=== PATIENT | female | born 1975 | race African-American/Black ===

== ENCOUNTER 2016-08-31 05:03 | Emergency (ER) | payer OTHER ==
[~2016-08-31] VITALS: Ht 175.3 cm; Wt 85.5 kg
[~2016-08-31 05:03] MED LIST: ALBU18HF2 IH; CARI350T PO; ONDA4TAB5 PO; OXYC-100 PO; PROT20 PO
[2016-08-31] MEDS ORDERED: SODIUM CHLORIDE 0.9% 1,000 ML IV ONE (06:16)
[2016-08-31] MEDS ORDERED: ONDANSETRON HCL 4MG/2ML VIAL IV STA (06:16)
[2016-08-31] MEDS ORDERED: DIPHENHYDRAMINE 50MG/ML VIAL IV ONE (06:30)
[2016-08-31] MEDS ORDERED: MORPHINE SULFATE 4 MG/ML CPJ (NOT FOR IM USE) IV ONE ×2 (06:30→07:45)
[2016-08-31 06:40] LABS: CLARITY URINE CLOUDY (CLEAR); COLOR URINE YELLOW (YELLOW); GLUCOSE URINE NEGATIVE (NEGATIVE); KETONES URINE 2+ (NEGATIVE); LEUKOCYTE ESTERASE URINE TRACE (NEGATIVE); NITRITE URINE NEGATIVE (NEGATIVE); OCCULT BLOOD URINE NEGATIVE (NEGATIVE); PH URINE >=9.0 (4.5-8.0); PROTEIN URINE TRACE (NEGATIVE); SPECIFIC GRAVITY URINE 1.021 (1.005-1.030)
[2016-08-31 06:42] LABS: HEMATOCRIT. 29.1 % (36.0-48.0); HEMOGLOBIN. 9.1 g/dL (12.0-16.0); MEAN CORPUSCULAR HEMOGLOBIN 23.9 pg (28.0-32.0); MEAN CORPUSCULAR HGB CONC 31.1 g/dL (31.0-37.0); MEAN PLATELET VOLUME 7.9 fl (7.4-10.4); PLATELET 262 x1000/uL (130-400); RED BLOOD CELL COUNT 3.79 mill/uL (4.2-5.4); RED CELL DISTRIBUTION WIDTH 18.1 % (11.6-14.6); WHITE BLOOD COUNT 2.5 x1000/uL (4.5-11.0)
[2016-08-31 06:43] LABS: DIFFERENTIAL COMMENT 1
[2016-08-31 06:45] LABS: CHLORIDE 104 mEq/L (98-107); INDEX ICTERIC 1 (1-4); INDEX LIPEMIC 1 (1-3)
[2016-08-31 06:52] LABS: ALANINE AMINOTRANSFERASE 41 IU/L (13-61); ALBUMIN 4.2 g/dL (3.4-5.0); ANION GAP 15; CALCIUM 9.3 mg/dL (8.5-10.1); CARBON DIOXIDE 23 mEq/L (21-32); LIPASE 128 IU/L (73-393); UREA NITROGEN BLOOD 10 mg/dL (7-21); eGFR > 60 mL/min (>60)
[2016-08-31 06:54] LABS: INDEX HEMOLYSI 4 (1-3)
[2016-08-31 07:08] LABS: ANISOCYTOSIS 2+; PLATELET ESTIMATE NORMAL
[2016-08-31] MEDS ORDERED: METOCLOPRAMIDE HCL 10MG/2ML VIAL IV ONE (07:45)
[2016-08-31 07:58] LABS: BACTERIA URINE TRACE; SQUAMOUS EPITHELIAL CELL URINE 1+ /lpf (RARE/1+)
[2016-08-31 07:59] LABS: RBC URINE 0-2 /hpf (0-2); WBC URINE 0-2 /hpf (0-2)
[2016-08-31 08:07] VITALS: BP 130/75
== END 2016-08-31 10:06 | disposition left against medical advice (07) ==
LOC: ER 07:45
DX: R10.84 Generalized abdominal pain (principal); J45.909 Unspecified asthma, uncomplicated; Z88.6 Allergy status to analgesic agent; Z88.5 Allergy status to narcotic agent; Z79.899 Other long term (current) drug therapy
CPT/HCPCS: 36415; 80053; 81001; 81025; 83690; 85025; 96374; 96375; 96376; 99284; J1200; J2270; J2405; J2765; Z7610; J7030

== ENCOUNTER 2017-03-07 11:57 | Emergency (ER) | payer OTHER ==
[~2017-03-07] VITALS: Ht 170.2 cm; Wt 78.0 kg
[2017-03-07] MEDS ORDERED: SODIUM CHLORIDE 0.9% 1,000 ML IV ONE (13:46)
[2017-03-07] MEDS ORDERED: ONDANSETRON HCL 4MG/2ML VIAL IV STA (13:46)
[2017-03-07] MEDS ORDERED: KETOROLAC 30MG/ML VIAL IV STA (13:46)
[2017-03-07 14:00] LABS: BASOPHILS % 0.2 % (0.0-2.0); EOSINOPHILS % 0.3 % (0.0-5.0); HEMATOCRIT. 33.7 % (36.0-48.0); HEMOGLOBIN. 10.4 g/dL (12.0-16.0); LYMPHOCYTES % 20.6 % (20.0-50.0); MEAN CORPUSCULAR HEMOGLOBIN 24.4 pg (28.0-32.0); MEAN CORPUSCULAR VOLUME 79.3 fL (81.0-99.0); MEAN PLATELET VOLUME 8.1 fl (7.4-10.4); MONOCYTES % 9.6 % (2.0-8.0); NEUTROPHILS % 69.3 % (40.0-76.0); PLATELET 289 x1000/uL (130-400); RED BLOOD CELL COUNT 4.25 mill/uL (4.2-5.4); RED CELL DISTRIBUTION WIDTH 18.4 % (11.6-14.6)
[2017-03-07 14:09] LABS: INR 1.2
[2017-03-07 14:14] LABS: CARBON DIOXIDE 27 mEq/L (21-32); CHLORIDE 104 mEq/L (98-107)
[2017-03-07 15:10] LABS: CLARITY URINE CLOUDY (CLEAR); COLOR URINE YELLOW (YELLOW); GLUCOSE URINE NEGATIVE (NEGATIVE); KETONES URINE TRACE (NEGATIVE); LEUKOCYTE ESTERASE URINE NEGATIVE (NEGATIVE); NITRITE URINE NEGATIVE (NEGATIVE); OCCULT BLOOD URINE NEGATIVE (NEGATIVE); PROTEIN URINE TRACE (NEGATIVE); SPECIFIC GRAVITY URINE 1.025 (1.005-1.030)
[2017-03-07] MEDS ORDERED: MORPHINE SULFATE 4 MG/ML CPJ (NOT FOR IM USE) IV ONE (15:15)
[2017-03-07] MEDS ORDERED: MORPHINE SULFATE 10 MG/ML CPJ IV NR (15:18)
[2017-03-07] MEDS ORDERED: ONDANSETRON HCL 4MG/2ML VIAL IV ONE (15:45)
[2017-03-07] MEDS ORDERED: DIPHENHYDRAMINE 50MG/ML VIAL IV ONE (16:00)
[2017-03-07 16:45] VITALS: BP 169/99
== END 2017-03-07 16:45 | disposition home or self-care (01) ==
LOC: ER 11:59
DX: R10.11 Right upper quadrant pain (principal); R11.2 Nausea with vomiting, unspecified; J45.909 Unspecified asthma, uncomplicated; Z88.5 Allergy status to narcotic agent; Z88.6 Allergy status to analgesic agent; Z98.890 Other specified postprocedural states
CPT/HCPCS: 36415; 74176; 80053; 81001; 81025; 83690; 85025; 85610; 96361; 96374; 96375; 96376; 99285; J1200; J1885; J2270; J2405; J7030; Z7610